=== PATIENT | female | born 1985 | race Caucasian/White ===

== ENCOUNTER → 2021-04-17 | Outpatient (CLI) | payer BC | LOC: MC.RAD 03-01 10:15 | DX: Z12.31 Encounter for screening mammogram for malignant neoplasm of breast (principal) ==

== ENCOUNTER → 2022-08-08 | Outpatient (CLI) | payer BC ==
[~2022-08-08] MED LIST: FLEXERIL 1010 MG/TAB PO
== END ==
LOC: MC.RAD 07:00
DX: Z12.31 Encounter for screening mammogram for malignant neoplasm of breast (principal)

== ENCOUNTER → 2023-09-02 | Outpatient (CLI) | payer BC | LOC: COL.RAD 09:40 | DX: R10.13 Epigastric pain (principal); R11.0 Nausea ==

== ENCOUNTER → 2024-04-16 | Outpatient (CLI) | payer BC | LOC: MC.RAD 07:45 | DX: Z12.31 Encounter for screening mammogram for malignant neoplasm of breast (principal) ==